=== PATIENT | female | born 1975 | race Two or more races ===

== ENCOUNTER 2023-05-27 05:30 | Day surgery (SDC) | payer OTHER ==
[~2023-05-27] VITALS: Ht 170.2 cm; Wt 97.5 kg
[~2023-05-27 05:30] MED LIST: ANASTROZOLE1 MG PO; CRESTOR20 MG PO; GLYXAMBI 25 MG1 EACH PO; LEVOTHYROXINE25 MCG PO; PAXIL PO
== END 2023-05-27 17:00 | disposition home or self-care (01) ==
LOC: CIR.AMB 05:30
PROVIDERS: ATTEND Surgery
DX: C50.411 Malignant neoplasm of upper-outer quadrant of right female breast (principal); N62 Hypertrophy of breast; N64.81 Ptosis of breast; R59.0 Localized enlarged lymph nodes; N60.81 Other benign mammary dysplasias of right breast; D24.1 Benign neoplasm of right breast
CPT/HCPCS: 19301; 38525; 38792; 19318; 19281; 19282; A9541; L8699

== ENCOUNTER 2023-05-29 01:24 | Emergency (ER) | payer OTHER ==
[~2023-05-29] VITALS: Ht 170.2 cm; Wt 97.5 kg
== END 2023-05-29 03:25 | disposition home or self-care (01) ==
LOC: ER 01:24
DX: G89.18 Other acute postprocedural pain (principal)